=== PATIENT | female | born 1980 | race Caucasian/White ===

== ENCOUNTER 2021-01-17 09:05 | Emergency (ER) | payer MEDICARE, OTHER ==
[~2021-01-17] VITALS: Ht 170.2 cm; Wt 100.0 kg
[~2021-01-17 09:05] MED LIST: CEPH-368 PO; CYCL10TA2 PO; OXYC10TA6 PO; oxycodone PO
[2021-01-17 09:20] VITALS: BP 138/81
--- NOTE | 2021-01-17 09:38 | NUR ---
Pt states she has previous abdominal issues maybe a hernia, suday reports moving someone at work and then feeling tearing with abdominal pain nausea, loose stools since.
--- NOTE | 2021-01-17 09:38 | NUR ---
ultrasound at bedside now
--- NOTE | 2021-01-17 10:49 | NUR ---
PIV started, bloods drawn and sent. AIDET provided
[2021-01-17 10:56] LABS: BASOPHILS % (AUTO) 0 % (0-1); EOSINOPHILS % (AUTO) 0 % (1-7); LYMPHOCYTES % (AUTO) 31 % (22-44); MEAN CORPUSCULAR HEMOGLOBIN 26.8 pg (27.0-34.8); MEAN CORPUSCULAR HGB CONC 33.2 g/dL (32.4-35.8); MONOCYTES % (AUTO) 10 % (2-9); NEUTROPHILS % (AUTO) 59 % (42-75); PLATELET COUNT 282 x10^3/uL (130-400); RED BLOOD COUNT 4.94 x10^6/uL (3.82-5.3); RED CELL DISTRIBUTION WIDTH 14.6 % (9.6-15.2)
[2021-01-17] MEDS ORDERED: SODIUM CHLORIDE FLUSH 10ML SYR IVF ONE (11:00)
[2021-01-17 11:08] LABS: ALBUMIN 3.7 g/dL (3.4-5.0); ANION GAP 4 mmol/L (5-15); CALCIUM 8.8 mg/dL (8.5-10.1); CHLORIDE 109 mmol/L (98-107); CREATININE 0.82 mg/dL (0.55-1.02)
--- NOTE | 2021-01-17 11:26 | NUR ---
Waiting for CT, pt in NAD.
--- NOTE | 2021-01-17 11:48 | NUR ---
Back from CT, waiting for results.
[2021-01-17] MEDS ORDERED: OMNIPAQUE 350 MG/ML, 100ML BOTTLE ONE (11:54)
== END 2021-01-17 12:59 | disposition home or self-care (01) ==
LOC: ED 12:50
DX: K43.9 Ventral hernia without obstruction or gangrene (principal)
CPT/HCPCS: 36415; 74177; 76705; 80048; 82040; 84703; 85025; 99285; Q9967